=== PATIENT | male | born 1965 | race American Indian/Alaskan Native ===

== ENCOUNTER → 2025-09-21 | Outpatient (CLI) | payer MEDICAID, SELFPAY ==
--- NOTE | 2025-09-21 16:48 | XR_ITS ---
Examination: Lumbar spine, 5 views Technique: Lumbar spine AP, lateral, coned lateral lower lumbar spine, bilateral obliques 5 views Exam date and time: September 21, 2025, 1450 hours INDICATIONS: Low back pain several years FINDINGS: Moderate osteopenia. Diffuse advanced facet arthropathy. Grade 1 anterolisthesis L3 on L2 No acute lumbar fracture Diffuse moderate to advanced lumbar degenerative disc disease most prominent L2-3, L5-S1 IMPRESSION: Diffuse moderate to advanced lumbar degenerative disc disease, most prominent at L2-L3, L5-S1
== END | disposition home or self-care (01) ==
LOC: CDIM 16:44
PROVIDERS: Referring Provider Nurse Practitioner Family; Visit Provider Nurse Practitioner Family
DX: M51.360 Other intervertebral disc degeneration, lumbar region with discogenic back pain only (principal); M51.370 Other intervertebral disc degeneration, lumbosacral region with discogenic back pain only; Z87.39 Personal history of other diseases of the musculoskeletal system and connective tissue
CPT/HCPCS: 72110